=== PATIENT | female | born 1930 | race African-American/Black ===

== ENCOUNTER 2017-09-13 16:40 | Emergency (ER) | payer MEDICARE | END 2017-09-13 19:40 | disposition home or self-care (01) | LOC: ER 16:40 | DX: T82.838A Hemorrhage due to vascular prosthetic devices, implants and grafts, initial encounter (principal); I12.9 Hypertensive chronic kidney disease with stage 1 through stage 4 chronic kidney disease, or unspecified chronic kidney disease; N18.9 Chronic kidney disease, unspecified; Z99.2 Dependence on renal dialysis; Z90.49 Acquired absence of other specified parts of digestive tract; Z95.1 Presence of aortocoronary bypass graft | CPT/HCPCS: 99283 ==